=== PATIENT | male | born 1965 | race Caucasian/White ===

== ENCOUNTER 2018-02-07 07:57 | Inpatient (IN) | payer MEDICAID ==
[~2018-02-07] VITALS: Ht 193 cm; Wt 95.3 kg
[2018-02-07] MEDS ORDERED: ASPIRIN 81MG TABLET PO STA (08:25)
[2018-02-07] MEDS ORDERED: DILTIAZEM HCL 5MG/ML 5ML VIAL IV ONE (08:30)
[2018-02-07] MEDS ORDERED: LORAZEPAM 2MG/ML CPJ IV ONE ×2 (09:00→11:00)
[2018-02-07 09:19] LABS: HEMATOCRIT. 43.5 % (42.0-52.0); MEAN CORPUSCULAR VOLUME 95.6 fL (80.0-94.0); MEAN PLATELET VOLUME 6.8 fl (7.4-10.4); PLATELET 267 x1000/uL (130-400); RED BLOOD CELL COUNT 4.55 mill/uL (4.7-6.1); RED CELL DISTRIBUTION WIDTH 15.3 % (11.6-14.6)
[2018-02-07 09:23] LABS: CHLORIDE 109 mEq/L (98-107)
[2018-02-07 09:25] LABS: INR 1.1; PARTIAL THROMBOPLASTIN TIME 25.1 sec (23.4-31.0); PROTHROMBIN TIME 11.4 sec (9.4-11.6)
[2018-02-07 09:27] LABS: ETHANOL BLOOD 13 mg/dL
[2018-02-07 10:03] LABS: PLATELET ESTIMATE NORMAL
[2018-02-07] MEDS ORDERED: ONDANSETRON HCL 4MG/2ML VIAL IV ONE (11:00)
[2018-02-07] MEDS ORDERED: GUAIFENESIN 200MG/10ML SUGAR FREE UDC PO PRN (11:30)
[2018-02-07] MEDS ORDERED: CLONIDINE 0.1MG TABLET PO PRN (11:30)
[2018-02-07] MEDS ORDERED: DOCUSATE SODIUM 100MG CAPSULE PO PRN (11:30)
[2018-02-07] MEDS ORDERED: MAGNESIUM/ALUMINUM HYDROXIDE/SIMETHICONE 30ML UDC PO PRN (11:30)
[2018-02-07] MEDS ORDERED: NA PHOS,M-B/NA PHOS,DI-BA ENEMA 118ML PR PRN (11:30)
[2018-02-07] MEDS ORDERED: ONDANSETRON HCL 4MG/2ML VIAL IV PRN (11:30)
[2018-02-07] MEDS ORDERED: IPRATROPIUM/ALBUTEROL 0.5-3(2.5)MG/3ML NEB INH PRN (11:30)
[2018-02-07] MEDS ORDERED: KETOROLAC 15MG/ML VIAL IV PRN (11:30)
[2018-02-07] MEDS ORDERED: ACETAMINOPHEN 325MG TABLET PO PRN (11:30)
[2018-02-07] MEDS ORDERED: DIPHENHYDRAMINE 50MG/ML VIAL IV PRN (11:30)
[2018-02-07] MEDS ORDERED: NITROGLYCERIN 0.4MG TABLET SL SL PRN (11:30)
[2018-02-07 12:00] VITALS: BP 138/87
[2018-02-07 12:30] VITALS: BP 138/87
[2018-02-07 13:00] VITALS: BP 138/87
[2018-02-07] MEDS ORDERED: ENOXAPARIN 40MG/0.4ML SYR SUBCUT SCH (13:00)
[2018-02-07] MEDS: CHLORDIAZEPOXIDE 25MG CAPSULE PO SCH ×2 (13:47→21:08)
[2018-02-07] MEDS: DILTIAZEM HCL 60MG TABLET PO SCH ×2 (13:48→18:14)
[2018-02-07] MEDS ORDERED: MVI, ADULT NO.1 10 ML, FOLIC ACID 1 MG, THIAMINE HCL 100 MG in SODIUM CHLORIDE 0.9% 1,0... IV ONE ×4 (14:00)
[2018-02-07 16:00] VITALS: BP 138/92
[2018-02-07 16:35] LABS: CREATINE KINASE 192 IU/L (39-308)
[2018-02-07 16:36] LABS: CREATINE KINASE MB FRACTION 1.9 ng/mL (0.5-3.6)
[2018-02-07] MEDS: LORAZEPAM 0.5MG TABLET PO PRN ×2 (17:30→21:54)
[2018-02-07] MEDS ORDERED: COR3 MT (18:41)
[2018-02-07] MEDS ORDERED: LISI-604 MT (18:41)
[2018-02-07 20:00] VITALS: BP 113/102
[2018-02-07] MEDS: FAMOTIDINE 20MG TABLET PO SCH (21:08)
[2018-02-07 22:38] LABS: CLARITY URINE CLEAR (CLEAR); COLOR URINE YELLOW (YELLOW); KETONES URINE TRACE (NEGATIVE); LEUKOCYTE ESTERASE URINE NEGATIVE (NEGATIVE); NITRITE URINE NEGATIVE (NEGATIVE); OCCULT BLOOD URINE NEGATIVE (NEGATIVE); PROTEIN URINE TRACE (NEGATIVE); SPECIFIC GRAVITY URINE 1.032 (1.005-1.030)
[2018-02-07 23:02] LABS: *AMPHETAMINES SCREEN URINE NEGATIVE (NEGATIVE); *BARBITURATES SCREEN URINE NEGATIVE (NEGATIVE); *BENZODIAZEPINES SCREEN URINE PRESUMTIVE POSITIVE (NEGATIVE); *COCAINE SCREEN URINE NEGATIVE (NEGATIVE); CANNABINOID URINE SCREEN NEGATIVE (NEGATIVE); METHADONE URINE SCREEN NEGATIVE (NEGATIVE); OPIATES URINE SCREEN NEGATIVE (NEGATIVE); PHENCYCLIDINE URINE SCREEN NEGATIVE (NEGATIVE)
[2018-02-07 23:28] LABS: CREATINE KINASE 173 IU/L (39-308)
[2018-02-07 23:29] LABS: CREATINE KINASE MB FRACTION 2.1 ng/mL (0.5-3.6)
[2018-02-08] VITALS: BP 126/85
[2018-02-08] MEDS: DILTIAZEM HCL 60MG TABLET PO SCH ×3 (02:38→11:46)
[2018-02-08] MEDS: LORAZEPAM 0.5MG TABLET PO PRN ×3 (02:38→11:09)
[2018-02-08 04:00] VITALS: BP 138/92
[2018-02-08] MEDS: CHLORDIAZEPOXIDE 25MG CAPSULE PO SCH ×2 (05:43→11:46)
[2018-02-08 08:00] VITALS: BP 123/79
[2018-02-08] MEDS ORDERED: ASPIRIN 325MG EC TABLET PO SCH (09:00)
[2018-02-08] MEDS: FAMOTIDINE 20MG TABLET PO SCH (09:07)
[2018-02-08 11:30] VITALS: BP 123/79
== END 2018-02-08 11:55 | disposition home or self-care (01) | DRG 201 ==
LOC: ER 08:03 → 7WST 11:01 → EDBEDREQTM 11:03 → EDBEDREQ 11:03 → ENRESERV 11:15
PROVIDERS: ADMIT Internal Medicine; ATTEND Internal Medicine
DX: I48.92 Unspecified atrial flutter (principal); I10 Essential (primary) hypertension; F17.210 Nicotine dependence, cigarettes, uncomplicated; F10.230 Alcohol dependence with withdrawal, uncomplicated; Z71.6 Tobacco abuse counseling; Z79.82 Long term (current) use of aspirin
CPT/HCPCS: 36415; 71045; 80053; 80061; 80305; 81003; 82550; 82553; 83036; 84484; 85025; 85610; 85730; 93005; 93970; 96372; 96374; 96375; 96376; 99285; G0482; J1200; J1650; J1885; J2060; J2405; J3411; J3490; J7030

== ENCOUNTER 2018-03-31 10:15 | Emergency (ER) | payer SELFPAY ==
[~2018-03-31] VITALS: Ht 193 cm; Wt 100.0 kg
[~2018-03-31 10:15] MED LIST: COR3 MT; LISI-604 MT
[2018-03-31] MEDS ORDERED: SODIUM CHLORIDE 0.9% 1,000 ML IV ONE (10:49)
[2018-03-31] MEDS ORDERED: ONDANSETRON HCL 4MG/2ML VIAL IV ONE (11:00)
[2018-03-31] MEDS ORDERED: MORPHINE SULFATE 4 MG/ML CPJ (NOT FOR IM USE) IV ONE ×2 (11:00→14:30)
[2018-03-31 11:04] LABS: BASOPHILS % 0.5 % (0.0-2.0); HEMATOCRIT. 45.4 % (42.0-52.0); HEMOGLOBIN. 15.8 g/dL (14.0-18.0); LYMPHOCYTES % 9.6 % (20.0-50.0); MEAN CORPUSCULAR HEMOGLOBIN 33.7 pg (28.0-32.0); MEAN CORPUSCULAR VOLUME 96.9 fL (80.0-94.0); MEAN PLATELET VOLUME 7.4 fl (7.4-10.4); NEUTROPHILS % 78.9 % (40.0-76.0); PLATELET 317 x1000/uL (130-400); RED BLOOD CELL COUNT 4.69 mill/uL (4.7-6.1); RED CELL DISTRIBUTION WIDTH 14.5 % (11.6-14.6)
[2018-03-31 11:10] LABS: CHLORIDE 103 mEq/L (98-107)
[2018-03-31 11:11] LABS: PARTIAL THROMBOPLASTIN TIME 26.1 sec (23.4-31.0); PROTHROMBIN TIME 10.5 sec (9.4-11.6)
[2018-03-31 17:32] VITALS: BP 138/87
== END 2018-03-31 17:35 | disposition home or self-care (01) ==
LOC: ER 10:24
DX: S09.8XXA Other specified injuries of head, initial encounter (principal); S20.212A Contusion of left front wall of thorax, initial encounter; I10 Essential (primary) hypertension; F17.200 Nicotine dependence, unspecified, uncomplicated; R19.7 Diarrhea, unspecified; F10.20 Alcohol dependence, uncomplicated; R11.10 Vomiting, unspecified; W01.0XXA Fall on same level from slipping, tripping and stumbling without subsequent striking against object, initial encounter; Y93.89 Activity, other specified; Y92.89 Other specified places as the place of occurrence of the external cause; Y99.8 Other external cause status
CPT/HCPCS: 36415; 70450; 71045; 74177; 80053; 83690; 84484; 85025; 85610; 85730; 93005; 96361; 96374; 96375; 96376; 99285; J2270; J2405; J7030

== ENCOUNTER 2018-05-02 13:03 | Emergency (ER) | payer MEDICAID ==
[~2018-05-02] VITALS: Ht 177.8 cm; Wt 90.0 kg
[~2018-05-02 13:03] MED LIST changes: +GABA-531 MT; +QUET300T2 MT
[2018-05-02 15:47] LABS: BASOPHILS % 0.4 % (0.0-2.0); EOSINOPHILS % 3.2 % (0.0-5.0); HEMATOCRIT. 39.7 % (42.0-52.0); HEMOGLOBIN. 13.4 g/dL (14.0-18.0); LYMPHOCYTES % 9.8 % (20.0-50.0); MEAN CORPUSCULAR HEMOGLOBIN 33.1 pg (28.0-32.0); MEAN CORPUSCULAR VOLUME 97.9 fL (80.0-94.0); MEAN PLATELET VOLUME 8.1 fl (7.4-10.4); MONOCYTES % 9.7 % (2.0-8.0); NEUTROPHILS % 76.9 % (40.0-76.0); PLATELET 331 x1000/uL (130-400); RED BLOOD CELL COUNT 4.06 mill/uL (4.7-6.1); RED CELL DISTRIBUTION WIDTH 14.6 % (11.6-14.6)
[2018-05-02 15:51] LABS: CHLORIDE 107 mEq/L (98-107)
[2018-05-02 16:04] LABS: ETHANOL BLOOD < 10 mg/dL
[2018-05-02 16:57] LABS: BASOPHILS % 1.1 % (0.0-2.0); EOSINOPHILS % 2.2 % (0.0-5.0); HEMATOCRIT. 42.5 % (42.0-52.0); HEMOGLOBIN. 14.1 g/dL (14.0-18.0); LYMPHOCYTES % 14.3 % (20.0-50.0); MEAN CORPUSCULAR HEMOGLOBIN 32.8 pg (28.0-32.0); MEAN CORPUSCULAR VOLUME 98.6 fL (80.0-94.0); MEAN PLATELET VOLUME 7.9 fl (7.4-10.4); MONOCYTES % 11.2 % (2.0-8.0); NEUTROPHILS % 71.2 % (40.0-76.0); PLATELET 326 x1000/uL (130-400); RED BLOOD CELL COUNT 4.31 mill/uL (4.7-6.1); RED CELL DISTRIBUTION WIDTH 14.9 % (11.6-14.6)
[2018-05-02 17:01] LABS: CHLORIDE 108 mEq/L (98-107)
[2018-05-02 17:05] LABS: AMMONIA 12 uMol/L (<32); ETHANOL BLOOD < 10 mg/dL
[2018-05-02] MEDS ORDERED: KETOROLAC 30MG/ML VIAL IV ONE (19:00)
[2018-05-02] MEDS ORDERED: HYDROCODONE/ACETAMINOPHEN 5/325MG TABLET PO ONE (19:00)
[2018-05-02] MEDS ORDERED: AMOXICILLIN/POTASSIUM CLAVULANATE 875/125MG TAB PO ONE (21:30)
[2018-05-02] MEDS ORDERED: LIDOCAINE HCL/PF 1% 10 MG/ML 5ML VIAL IJ NR (21:31)
[2018-05-03 00:44] VITALS: BP 111/74
[2018-05-14] MEDS ORDERED: AMI2 PO (16:36)
[2018-05-14] MEDS ORDERED: THIA100T72 PO (16:36)
[2018-05-14] MEDS ORDERED: FOLI-43 PO (16:36)
[2018-05-14] MEDS ORDERED: QUET100T PO (16:36)
[2018-05-14] MEDS ORDERED: LISI-604 PO (16:36)
[2018-05-14] MEDS ORDERED: DIGO-28 PO (16:36)
[2018-05-14] MEDS ORDERED: SERT50TA PO (16:36)
[2018-05-14] MEDS ORDERED: DILT120C88 PO (16:36)
== END 2018-05-03 00:44 | disposition home or self-care (01) ==
LOC: ER 13:03
DX: S61.211A Laceration without foreign body of left index finger without damage to nail, initial encounter (principal); S81.011A Laceration without foreign body, right knee, initial encounter; R51 Headache; W18.30XA Fall on same level, unspecified, initial encounter; R27.0 Ataxia, unspecified; Y93.01 Activity, walking, marching and hiking; Y92.89 Other specified places as the place of occurrence of the external cause
CPT/HCPCS: 12001; 36415; 72040; 73564; 80048; 80053; 82140; 85025; 93005; 96374; 99285; G0482; J1885; J3490